=== PATIENT | male | born 1990 | race Caucasian/White ===

== ENCOUNTER 2024-11-23 05:59 | Inpatient (IN) | payer SELFPAY ==
[~2024-11-23] VITALS: Ht 177.8 cm; Wt 95.3 kg
[2024-11-23 06:59] LABS: BG BASE EXCESS 7.2 mmol/L (-2.0-3.0); BG CARBOXYHEMOGLOBIN 0.3 % (0.5-1.5); BG DEOXYHEMOGLOBIN 3.5 % (0.0-5.0); BG FRACTION INSPIRED OXYGEN 21; BG HCO3 ACT 29.5 mmol/L (21.0-28.0); BG OXYGEN SATURATION 96.5 % (94.0-98.0); BG OXYHEMOGLOBIN 96.2 % (94.0-98.0); BG PCO2 34.7 mmHg (35.0-48.0); BG PH 7.547 (7.350-7.450); BG PO2 78.8 mmHg (83.0-108.0); BG SAMPLE SITE RIGHT RADIAL; BG TOTAL HEMOGLOBIN 17.8 g/dL (13.5-17.5); BG VENT MODE ROOM AIR
[2024-11-23 08:13] LABS: CARBON DIOXIDE 27 mEq/L (21-32); CHLORIDE 98 mEq/L (98-107); POTASSIUM 3.1 mEq/L (3.5-5.1); SODIUM 139 mEq/L (136-145)
[2024-11-23 08:15] LABS: CALCIUM 8.9 mg/dL (8.7-10.4)
[2024-11-23 08:19] LABS: CREATININE 0.9 mg/dL (0.6-1.3); GLUCOSE 136 mg/dL (70-105); TROPONIN I HIGH SENSITIVITY 17 ng/L (3.0-53)
[2024-11-23 08:20] LABS: AMMONIA < 17 uMol/L (<32); ETHANOL BLOOD 204 mg/dL (<10)
[2024-11-23 08:30] LABS: EOSINOPHILS % 0.2 % (0.0-5.0); HEMATOCRIT. 49.6 % (42.0-52.0); MEAN CORPUSCULAR HEMOGLOBIN 30.1 pg (28.0-32.0); MEAN CORPUSCULAR HGB CONC 34.3 g/dL (31.0-37.0); MEAN CORPUSCULAR VOLUME 87.6 fL (80.0-94.0); MEAN PLATELET VOLUME 7.8 fl (7.4-10.4); MONOCYTES % 10.2 % (2.0-8.0); NEUTROPHILS % 61.6 % (40.0-76.0); PLATELET 337 x1000/uL (130-400); RED BLOOD CELL COUNT 5.66 mill/uL (4.7-6.1); RED CELL DISTRIBUTION WIDTH 13.6 % (11.6-14.6); WHITE BLOOD COUNT 6.8 x1000/uL (4.5-11.0)
[2024-11-23] MEDS ORDERED: VANCOMYCIN 1G PREMIX 200 ML IV ONE (08:45)
[2024-11-23 10:05] LABS: UREA NITROGEN BLOOD < 5 mg/dL (9-23)
[2024-11-23] MEDS: SODIUM CHLORIDE 0.9% (SEPSIS BOLUS) IV ONE (10:52)
[2024-11-23] MEDS: PIPERACILLIN/TAZO 3.375G/50ML 50 ML IV ONE (10:52)
[2024-11-23] MEDS ORDERED: THIAMINE HCL 100 MG/1 ML 2ML VIAL IM STA (11:14)
[2024-11-23] MEDS ORDERED: IPRATROPIUM/ALBUTEROL 0.5-3(2.5)MG/3ML NEB HHN PRN (11:15)
[2024-11-23] MEDS ORDERED: ONDANSETRON HCL 4MG/2ML INJ IV PRN (11:15)
[2024-11-23] MEDS ORDERED: GUAIFENESIN 200MG/10ML SUGAR FREE UDC PO PRN (11:15)
[2024-11-23] MEDS ORDERED: DOCUSATE SODIUM 100MG CAPSULE PO PRN (11:15)
[2024-11-23] MEDS ORDERED: POTASSIUM CHLORIDE 40 MEQ in DEXT 5% WATER 230 ML IV ONE (11:15)
[2024-11-23] MEDS ORDERED: ACETAMINOPHEN 325MG TABLET PO PRN ×2 (11:15)
[2024-11-23] MEDS ORDERED: MAGNESIUM/ALUMINUM HYDROXIDE/SIMETHICONE 30ML UDC PO PRN (11:15)
[2024-11-23] MEDS: VANCOMYCIN 1G PREMIX 200 ML IV NR (12:47)
[2024-11-23] MEDS ORDERED: LORAZEPAM 2MG/ML INJ IV PRN (13:15)
[2024-11-23 13:28] LABS: ALANINE AMINOTRANSFERASE 37 IU/L (10-49); ALBUMIN 4.5 g/dL (3.2-4.8); ASPARTATE AMINOTRANSFERASE 65 IU/L (<34); BILIRUBIN DIRECT 0.2 mg/dL (<=3.0); BILIRUBIN TOTAL 0.6 mg/dL (0.1-1.0); PHOSPHORUS 2.7 mg/dL (2.5-4.9)
[2024-11-23 13:29] LABS: PROTEIN TOTAL 8.2 g/dL (6.0-8.3)
[2024-11-23] MEDS: THIAMINE IV SCH (13:50)
[2024-11-23] MEDS: LORAZEPAM 2MG/ML INJ IV SCH (13:50)
[2024-11-23] MEDS: SODIUM CHLORIDE 0.9% IV SCH (13:50)
[2024-11-23 17:44] VITALS: BP 157/104; PULSE 114; RESP 20; TEMP 36.5848
[2024-11-23 18:00] VITALS: BP 131/88
[2024-11-23] MEDS: FOLIC ACID 1 MG, THIAMINE HCL 100 MG, MVI, ADULT NO.1 10 ML in SODIUM CHLORIDE 0.9% 1,0... IV ONE (18:27)
[2024-11-23] MEDS: CHLORDIAZEPOXIDE 25MG CAPSULE PO SCH (18:38)
[2024-11-23] MEDS ORDERED: INFLUENZA VACCINE 05/PF 0.5 ML SYRINGE IM ONE (19:00)
[2024-11-23] MEDS: PNEUMOCOCCAL 20-VAL CONJ-DIP CRM 0.5ML IM ONE (19:00)
[2024-11-23 19:13] LABS: CLARITY URINE CLEAR (CLEAR); COLOR URINE YELLOW (YELLOW); GLUCOSE URINE NEGATIVE (NEGATIVE); KETONES URINE NEGATIVE (NEGATIVE); LEUKOCYTE ESTERASE URINE NEGATIVE (NEGATIVE); NITRITE URINE NEGATIVE (NEGATIVE); OCCULT BLOOD URINE NEGATIVE (NEGATIVE); PROTEIN URINE 2+ (NEGATIVE); SPECIFIC GRAVITY URINE 1.008 (1.005-1.030); UROBILINOGEN URINE 0.2 E.U./dL (0.2-1.0)
[2024-11-23 19:31] LABS: *AMPHETAMINES SCREEN URINE NEGATIVE (NEGATIVE); *BARBITURATES SCREEN URINE NEGATIVE (NEGATIVE); *BENZODIAZEPINES SCREEN URINE NEGATIVE (NEGATIVE); *COCAINE SCREEN URINE NEGATIVE (NEGATIVE)
[2024-11-23 19:32] LABS: CANNABINOID URINE SCREEN NEGATIVE (NEGATIVE); ECSTASY MDMA SCREEN URINE NEGATIVE (NEGATIVE); METHADONE URINE SCREEN NEGATIVE (NEGATIVE); OPIATES URINE SCREEN NEGATIVE (NEGATIVE); PHENCYCLIDINE URINE SCREEN NEGATIVE (NEGATIVE)
[2024-11-23 19:40] LABS: BACTERIA URINE NONE SEEN; RBC URINE NONE SEEN /hpf (0-2); SQUAMOUS EPITHELIAL CELL URINE FEW /lpf (RARE/1+); WBC URINE NONE SEEN /hpf (0-2)
[2024-11-23 20:00] VITALS: BP 140/72; PULSE 76; RESP 18; TEMP 36.44736; O2SAT 100
[2024-11-23] MEDS: KCL 20MEQ/100ML X 2 FOR TOTAL KCL 40MEQ/200ML IV SCH (21:31)
[2024-11-24] VITALS: BP 138/85; PULSE 84; RESP 18; TEMP 36.55848; O2SAT 100
[2024-11-24] MEDS ORDERED: KETOROLAC 15MG/ML VIAL IV PRN (02:45)
[2024-11-24 02:53] LABS: CREATINE KINASE 2836 IU/L (46-171)
[2024-11-24 08:00] VITALS: BP 141/91; PULSE 111; RESP 20; TEMP 36.72516; O2SAT 96
[2024-11-24 08:46] LABS: BASOPHILS % 0.3 % (0.0-2.0); EOSINOPHILS % 0.2 % (0.0-5.0); HEMATOCRIT. 42.3 % (42.0-52.0); HEMOGLOBIN. 14.4 g/dL (14.0-18.0); MEAN CORPUSCULAR HEMOGLOBIN 30.1 pg (28.0-32.0); MEAN CORPUSCULAR HGB CONC 33.9 g/dL (31.0-37.0); MEAN CORPUSCULAR VOLUME 88.6 fL (80.0-94.0); MONOCYTES % 13.2 % (2.0-8.0); NEUTROPHILS % 72.3 % (40.0-76.0); PLATELET 236 x1000/uL (130-400); RED BLOOD CELL COUNT 4.78 mill/uL (4.7-6.1); RED CELL DISTRIBUTION WIDTH 13.6 % (11.6-14.6); WHITE BLOOD COUNT 7.5 x1000/uL (4.5-11.0)
[2024-11-24 08:56] LABS: THYROID STIMULATING HORMONE 3.16 uIU/mL (0.55-4.78)
[2024-11-24 09:00] LABS: CREATININE 2.5 mg/dL (0.6-1.3)
[2024-11-24] MEDS: THIAMINE HCL 100MG TABLET PO SCH (09:13)
[2024-11-24] MEDS: FOLIC ACID 1MG TABLET PO SCH (09:13)
[2024-11-24] MEDS: PANTOPRAZOLE SODIUM 40 MG/VIAL IV SCH (09:13)
[2024-11-24] MEDS: MULTIVITAMINS,THER W-MINERALS TABLET PO SCH (09:13)
[2024-11-24 11:06] LABS: CREATINE KINASE 2435 IU/L (46-171)
[2024-11-24] MEDS: SODIUM CHLORIDE 0.9% 1,000 ML IV SCH (11:26)
[2024-11-24 12:00] VITALS: BP 140/88; PULSE 97; RESP 20; TEMP 36.83628; O2SAT 97
[2024-11-24 16:00] VITALS: BP 135/86; PULSE 97; RESP 20; TEMP 36.83628; O2SAT 98
[2024-11-24 21:00] VITALS: BP 155/91; PULSE 108; RESP 20; TEMP 36.33624; O2SAT 97
[2024-11-25] VITALS: BP 133/96; PULSE 106; RESP 18; TEMP 36.50292; O2SAT 96
[2024-11-25 04:00] VITALS: BP 141/90; PULSE 104; RESP 18; TEMP 36.78072; O2SAT 97
[2024-11-25 07:48] LABS: CARBON DIOXIDE 27 mEq/L (21-32); CHLORIDE 103 mEq/L (98-107); POTASSIUM 3.7 mEq/L (3.5-5.1); SODIUM 139 mEq/L (136-145)
[2024-11-25 07:49] LABS: CALCIUM 8.6 mg/dL (8.7-10.4)
[2024-11-25 07:54] LABS: CREATININE 2.4 mg/dL (0.6-1.3); GLUCOSE 126 mg/dL (70-105); UREA NITROGEN BLOOD 22 mg/dL (9-23)
[2024-11-25 07:55] LABS: CREATINE KINASE 1053 IU/L (46-171)
[2024-11-25 07:56] LABS: PHOSPHORUS 4.6 mg/dL (2.5-4.9)
[2024-11-25 08:00] VITALS: BP 133/98; PULSE 92; RESP 18; TEMP 36.6696; O2SAT 98
[2024-11-25 09:12] LABS: BASOPHILS % 0.2 % (0.0-2.0); EOSINOPHILS % 1.1 % (0.0-5.0); LYMPHOCYTES % 13.9 % (20.0-50.0); MEAN CORPUSCULAR HEMOGLOBIN 30.6 pg (28.0-32.0); MEAN CORPUSCULAR HGB CONC 34.2 g/dL (31.0-37.0); MEAN CORPUSCULAR VOLUME 89.6 fL (80.0-94.0); MEAN PLATELET VOLUME 8.5 fl (7.4-10.4); MONOCYTES % 6.3 % (2.0-8.0); NEUTROPHILS % 78.5 % (40.0-76.0); PLATELET 200 x1000/uL (130-400); RED BLOOD CELL COUNT 4.58 mill/uL (4.7-6.1); RED CELL DISTRIBUTION WIDTH 13.5 % (11.6-14.6); WHITE BLOOD COUNT 7.7 x1000/uL (4.5-11.0)
[2024-11-25] MEDS: CLONIDINE 0.1MG TABLET PO PRN (09:22)
[2024-11-25 12:00] VITALS: BP 123/73; PULSE 85; RESP 18; TEMP 36.61404; O2SAT 97
[2024-11-25 15:54] VITALS: BP 130/82; PULSE 91; TEMP 97.9; O2SAT 97
[2024-11-25 16:00] VITALS: BP 130/82; PULSE 91; RESP 18; TEMP 36.61404; O2SAT 97
== END 2024-11-25 16:40 | disposition home or self-care (01) | DRG 52 ==
LOC: ER 05:59 → EDBEDREQTM 10:47 → EDBEDREQ 10:47 → 7EST 17:09
PROVIDERS: ADMIT Hospitalist; ATTEND Hospitalist
DX: G92.8 Other toxic encephalopathy (principal); N17.0 Acute kidney failure with tubular necrosis; E87.20 Acidosis, unspecified; F10.129 Alcohol abuse with intoxication, unspecified; F10.139 Alcohol abuse with withdrawal, unspecified; E87.6 Hypokalemia; E78.1 Pure hyperglyceridemia; M62.82 Rhabdomyolysis; Z79.899 Other long term (current) drug therapy
CPT/HCPCS: 36415; 36600; 71045; 76700; 80048; 80061; 80076; 80305; 80320; 81003; 82140; 82375; 82550; 82805; 82962; 83036; 83605; 83735; 84100; 84145; 84443; 84484; 85025; 93005; 99291; A4606; A4663; J2060; J2470; J2543; J3370; J3411; J3480; J3490; J7030; G0480